=== PATIENT | male | born 1945 | race Caucasian/White ===

== ENCOUNTER 2017-02-09 18:02 | Day surgery (SDC) | payer MEDICARE, BC ==
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
[2017-02-09] MEDS ORDERED: CIPRO500 MG PO (21:13)
[2017-02-09] MEDS ORDERED: NORCO 10-325 T1 EACH PO (21:15)
== END 2017-02-09 21:50 | disposition disaster alternative care site (69) ==
LOC: GACC 18:02 → GSDC 19:46
PROC: 0PBV0ZZ Excision of Left Finger Phalanx, Open Approach (ICD-10-PCS; principal; 2017-02-09)
DX: S62.611B Displaced fracture of proximal phalanx of left index finger, initial encounter for open fracture (principal); S66.321A Laceration of extensor muscle, fascia and tendon of left index finger at wrist and hand level, initial encounter; W34.09XA Accidental discharge from other specified firearms, initial encounter
CPT/HCPCS: J0696; J1644; J7040; J7120